=== PATIENT | male | born 1980 | race Caucasian/White ===

== ENCOUNTER 2021-02-08 16:15 | Outpatient (CLI) | payer OTHER ==
--- NOTE | 2021-02-09 12:52 | XRAY Report ---
PROCEDURE: Thoracic Spine 3 View INDICATIONS: UPPER BACK PX TECHNIQUE: 3 views of the thoracic spine were acquired. COMPARISON: None. FINDINGS: Bones: No fractures or dislocations. No suspicious bony lesions. 12 pairs of ribs are noted, and a ppear intact where visualized. Soft tissues: No paravertebral stripe thickening. IMPRESSION: This is a normal study. Reviewed by: Sid Amado MD on 02/09/2021 12:50 PM PDT Approved by: Sid Amado MD on 02/09/2021 12:50 PM PDT Station ID: [id number]
== END 2021-02-08 23:59 | disposition home or self-care (01) ==
LOC: DI.N 16:15
PROVIDERS: ATTEND Family Medicine
DX: M54.6 Pain in thoracic spine (principal)